=== PATIENT | female | born 1995 | race Caucasian/White ===

== ENCOUNTER 2024-09-23 07:31 | Outpatient (CLI) | payer BC, SELFPAY ==
--- NOTE | 2024-09-23 07:15 | CRLHL7_ITS ---
For Patients: As a result of the Cures Act, medical imaging exams and procedure reports are released immediately into your electronic medical record. You may view this report before your referring provider. If you have questions, please contact your health care provider. INDICATION: First trimester scan, establish dates. COMPARISON: None. TECHNIQUE: Real-time martin-scale imaging of the pelvis was performed. FINDINGS: Sonographic imaging demonstrates a single living intrauterine gestation. The embryo demonstrates a regular cardiac rate measuring 169 beats per minute. The embryo`s crown-rump length measurement of 2.9 cm corresponds to a gestational age of 9 weeks 5 days with a sonographic due date of 04/23/2025. There is a normal-appearing yolk sac. There are no gross abnormalities noted within the embryo at this early state of development. The gestational sac has a normal appearance. There is no evidence of a perigestational hemorrhage. The amount of fluid within the sac appears appropriate for gestational age. The cervix is closed. The myometrium appears normal. Corpus luteal cyst left ovary measures 1.8 x 1.4 x 2.1 cm. Simple right ovarian cyst is present measuring 2.1 x 2.0 x 1.8 cm. There are no suspicious fluid collections noted in the cul-de-sac. IMPRESSION: Single living intrauterine with sonographic gestational age 9 weeks 5 days and sonographic due date 04/23/2025. Dictated by Jackson Mosquera MD @ 09/23/2024 9:24:56 AM (Electronically Signed)
== END 2024-09-23 07:32 | disposition home or self-care (01) ==
PROVIDERS: Visit Provider Midwife
DX: Z34.91 Encounter for supervision of normal pregnancy, unspecified, first trimester (principal); Z3A.09 9 weeks gestation of pregnancy
CPT/HCPCS: 76817

== ENCOUNTER 2024-09-23 08:14 | Outpatient (CLI) | payer BC, SELFPAY ==
[2024-09-25 06:25] LABS: HPV Source Cervical; HPV, High Risk by TMA Not Detected
== END 2024-09-23 08:15 | disposition home or self-care (01) ==
PROVIDERS: Visit Provider Advanced Practice Midwife
DX: Z12.4 Encounter for screening for malignant neoplasm of cervix (principal); Z11.3 Encounter for screening for infections with a predominantly sexual mode of transmission; Z11.51 Encounter for screening for human papillomavirus (HPV)
CPT/HCPCS: 87491; 87591; 87624; 87625; 88141; 88142

== ENCOUNTER 2024-09-26 11:10 | Outpatient (CLI) | payer BC, SELFPAY | END 2024-09-26 11:11 | disposition home or self-care (01) | LOC: NFLDREF 09-27 03:30 | PROVIDERS: Visit Provider Advanced Practice Midwife | DX: Z34.81 Encounter for supervision of other normal pregnancy, first trimester (principal); Z67.10 Type A blood, Rh positive | CPT/HCPCS: 83020; 83021; 85660; 86592; 86703; 86704; 86706; 86762; 86787; 86803; 86850; 86900; 86901; 87086; 87340 ==

== ENCOUNTER 2024-11-24 08:17 | Outpatient (CLI) | payer BC, SELFPAY | END 2024-11-24 08:18 | disposition home or self-care (01) | LOC: US 08:17 | PROVIDERS: Visit Provider Advanced Practice Midwife | DX: Z34.92 Encounter for supervision of normal pregnancy, unspecified, second trimester (principal); O35.AXX0 Maternal care for other (suspected) fetal abnormality and damage, fetal facial anomalies, not applicable or unspecified; O35.BXX0 Maternal care for other (suspected) fetal abnormality and damage, fetal cardiac anomalies, not applicable or unspecified; Z3A.19 19 weeks gestation of pregnancy | CPT/HCPCS: 76805 ==

== ENCOUNTER 2024-12-22 12:12 | Outpatient (CLI) | payer BC, SELFPAY ==
--- NOTE | 2024-12-22 12:15 | CRLHL7_ITS ---
For Patients: As a result of the Century Cures Act, medical imaging exams and procedure reports are released immediately into your electronic medical record. You may view this report before your referring provider. If you have questions, please contact your health care provider. OB ULTRASOUND DEMETRIO by LMP/US: 04/19/2025. GA: 23 w, 1 d. INDICATION: Follow-up heart, nose, lips, and left hand. TECHNIQUE: Real time grayscale imaging of the fetus was performed. Transabdominal. CERVIX: Visualized. Measurement: TA. 4.1 cm. POSITIONING: Breech. AMNIOTIC FLUID: 3.3 cm. SDP (N: greater than 2 x 1 cm) PLACENTA: Technique: Transabdominal. PLACENTA POSITION: Posterior. DOPPLER: heart rate: 152 bpm. IMPRESSION: Normal four-chamber heart, RVOT, nose, lips, and left hand. Incomplete visualization of the three-vessel trachea view due to position. Jackson Mosquera M.D. Diagnostic Radiologist [email or web address] [place]LA[facility]/tayla bourne/Dictated by: Jackson Mosquera MD @ 12/23/2024 9:01:00 AM (Electronically Signed)
== END 2024-12-22 12:13 | disposition home or self-care (01) ==
LOC: US 12:12
PROVIDERS: Visit Provider Advanced Practice Midwife
DX: O35.AXX0 Maternal care for other (suspected) fetal abnormality and damage, fetal facial anomalies, not applicable or unspecified (principal); O35.BXX0 Maternal care for other (suspected) fetal abnormality and damage, fetal cardiac anomalies, not applicable or unspecified; O35.GXX0 Maternal care for other (suspected) fetal abnormality and damage, fetal upper extremities anomalies, not applicable or unspecified; Z3A.23 23 weeks gestation of pregnancy
CPT/HCPCS: 76816

== ENCOUNTER 2024-12-22 13:40 | Outpatient (CLI) | payer BC, SELFPAY | END 2024-12-22 13:41 | disposition home or self-care (01) | LOC: NFLDREF 13:42 | PROVIDERS: Visit Provider Advanced Practice Midwife | DX: E04.9 Nontoxic goiter, unspecified (principal) | CPT/HCPCS: 76816; 84443 ==

== ENCOUNTER 2025-01-09 12:52 | Outpatient (CLI) | payer BC, SELFPAY ==
--- NOTE | 2025-01-09 13:00 | CRLHL7_ITS ---
For Patients: As a result of the Cures Act, medical imaging exams and procedure reports are released immediately into your electronic medical record. You may view this report before your referring provider. If you have questions, please contact your health care provider. OB ULTRASOUND LIMITED, 01/09/2025 CLINICAL HISTORY: Missing 3VV of heart. COMPARISON: 11/24/2024, 12/22/2024. TECHNIQUE: Real time martin scale imaging of the fetus was performed transvaginal. FINDINGS: DEMETRIO by LMP: 04/19/2025. GA: 25 weeks 5 days. GESTATION: Single. LMP: 07/13/2024. CERVIX: Not visualized. POSITIONING: Vertex. AMNIOTIC FLUID: 4.1 cm/SDP. PLACENTA: Technique: TA. Placenta Position: Posterior. DOPPLERS: Heart Rate: 149 bpm. IMPRESSION: Normal three vessel trachea view, three vessel view, RVOT, LVOT and four chamber heart. Jackson Mosquera M.D. Diagnostic Radiologist [email or web address] Transcribed: 2:49 pm DW/Dictated by: Jackson Mosquera MD @ 01/09/2025 2:27:00 PM (Electronically Signed)
== END 2025-01-09 12:53 | disposition home or self-care (01) ==
LOC: US 12:53
PROVIDERS: Visit Provider Advanced Practice Midwife
DX: O35.BXX0 Maternal care for other (suspected) fetal abnormality and damage, fetal cardiac anomalies, not applicable or unspecified (principal); Z3A.35 35 weeks gestation of pregnancy
CPT/HCPCS: 76816

== ENCOUNTER 2025-01-19 12:35 | Outpatient (CLI) | payer BC, SELFPAY | END 2025-01-19 12:36 | disposition home or self-care (01) | LOC: NFLDREF 01-25 01:55 | PROVIDERS: Visit Provider Midwife | DX: Z34.83 Encounter for supervision of other normal pregnancy, third trimester (principal) | CPT/HCPCS: 86592 ==

== ENCOUNTER 2025-03-29 09:32 | Outpatient (CLI) | payer BC, SELFPAY | END 2025-03-29 09:33 | disposition home or self-care (01) | LOC: NFLDREF 03-31 17:15 | PROVIDERS: Visit Provider Advanced Practice Midwife | DX: Z34.83 Encounter for supervision of other normal pregnancy, third trimester (principal) | CPT/HCPCS: 87081; 87653 ==

== ENCOUNTER 2025-04-06 08:27 | Outpatient (CLI) | payer BC, SELFPAY ==
[2025-04-06 08:50] VITALS: PULSE 95; O2SAT 98
[2025-04-06 08:51] VITALS: BP 132/83; PULSE 93
[2025-04-06 08:52] VITALS: RESP 17; TEMP 36.5
[2025-04-06 08:55] VITALS: PULSE 94; O2SAT 97
[2025-04-06] MEDS: TERBUTALINE 1 MG/ML INJ 0.25 MG SUBCUT (09:54)
--- NOTE | 2025-04-06 09:57 | PM.OBCN1 ---
OB - CN: HPI Date of Consult Time Seen by Provider: 09:57 Date Seen: 04/06/25 Patient: [facility] Patient Consult date: 04/06/25 Requesting Physician: Lucius Blum CNM Primary Care Provider: Not a Local Provider Consult Narrative Reason for consult: other (External cephalic version) Narrative: The patient is a 30 year old G 2 P 1001 at 38 1/7 weeks gestation that was admitted to the Center on for ECV. Patient presented for her routine PNC appointment yesterday with YVES where malpresentation was diagnosed. After having a discussion with Emerita patient wanted to proceed with ECV. History of Present Dating criteria: based on LMP care: good care Ultrasounds: normal 1st trimester US and normal mid trimester US History History 2 Elective abortions Para 1 Spontaneous abortions Hx # Term Pregnancies Ectopic pregnancies Hx # Pregnancies Multiple births Number of Living Children 1 Past Pregnancies Del. Date GA/Weeks Outcome Route wt Inf Gender Labor Lgth Anesthesia Location Provider Compli 01/26/23 39 live - full term vaginal delivery 3.629 kg Male 2hr active, labored at home for a long time none [place] Delivery Date: 01/26/23 Last Updated by: Lia Miller CNM mild shoulder dystocia-Janae and suprapubic pressure, no time given but less than 1 min PFSH PFSH Medical History History of ovarian cyst ?Z87.42 - Personal history of other diseases of the female genital tract (ICD-10) No pertinent past medical history ?Z78.9 - Other specified health status (ICD-10) Surgical History H/O wisdom tooth extraction ?K08.409 - Partial loss of teeth, unspecified cause, unspecified class (ICD-10) Family History Paternal Grandfather Diabetes Social History Narrative: SOCIAL Education: bachelors 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 Seat Belt Use: Routinely Smoking: Denies past/present Alcohol/day: Denies while Caffeine: occasionally Drug Use: Denies past/present Chicken Pox: Yes as a child MRSA: Denies What is your current living situation?: I presently have a place to live In the past 12 months, utilities in danger of being shut off: no In past 12 months, lack of transportation kept you from medical appts, meetings, work, or getting things needed for daily living: no In the past 12 mos, have been you worried that your food would run out before you had money to buy more?: never true In the past 12 mos, the food you bought just didn't last and you didn't have money to buy more?: never true How often does anyone, including family, friends and others, physically hurt you: never How often does anyone, including family, friends and others, insult or talk down to you: never How often does anyone, including family, friends and others, threaten you with harm: never How often does anyone, including family, friends and others, scream or curse at you: never Meds Home Medications and Allergies Home Medications ?Medication ?Instructions ?Recorded ?Confirmed ?Type vit 168-iron 27 mg-folic 1 cap PO DAILY 12/22/24 04/06/25 History acid 800 mcg-omega3 235 mg capsule (One-A-Day -1) omega 3-dha 100 mg-epa 400 mg-fish 1 cap PO DAILY 03/16/25 04/06/25 History oil 1,000 mg capsule magnesium 200 mg tablet 200 mg PO DAILY 04/06/25 04/06/25 History Allergies Allergy/AdvReac Type Severity Reaction Status Date / Time No Known Drug Allergies Allergy Verified 04/06/25 08:56 OB - H&P: Exam Physical Exam: Vital signs: Temp Pulse Resp BP Pulse Ox 97.7 F 93 17 132/83 97 04/06/25 08:52 04/06/25 08:51 04/06/25 08:52 04/06/25 08:51 04/06/25 08:55 Narrative: Bedside US confirms jodi breech presentation. Head is midline upper abdomen and back is towards maternal left, extremities toward maternal right side. Posterior placenta and grossly normal amniotic fluid. SDP at least of 3cm. Buttock does not seem to be engaged in pelvis. Informed consent reviewed and signed by patient. Discussed how procedure is performed, possible risks such as PROM, placental abruption and needing emergency delivery today, concealed placental abruption and risk of stillbirth. Discussed recommendation for continued monitoring after procedure, discussed close monitoring of kick counts after procedure. Discussed possible scenarios in terms if we are successful or not. Discussed that if we are unsuccessful at this gestational age, my recommendation would be to proceed with delivery at 39 weeks and discussed the reasoning behind 39 weeks delivery to try to prevent malpresentation complications and labor such as umbilical cord prolapse etc... NST completed upon admission: 130bpm/positive accelerations/negative decelerations/moderate variability/no uterine contractions. We established IV line and one dose of Terbutaline 0.25mg SQ x1 was given. After 10 minutes, Patient was placed supine in bed. I had assistance from Lucius Blum CNM. First attempt we performed was a backward somersault and successful. Procedure ended. Patient will remain in unit at least 1 hour post procedure for long NST. She will follow up routinely in week in clinic. OB - CN: A/P Assessment and Plan (1) Breech position of fetus: Status: Acute (2) Successful external cephalic version: Status: Acute Plan Successful ECV, reassuring monitoring after procedure, patient tolerated well. Plans to follow up in clinic in 1 week for routine care sooner with any concerns as discussed prior to procedure.
--- NOTE | 2025-04-06 11:31 | PC.OBNST ---
NST Note NST Note Start: 04/06/25 08:44 Freq: ONCE Status: Active Protocol: Document 04/06/25 08:44 [facility] (Rec: 04/06/25 11:31 [facility] [id number]) NST Note 2 Para (# of births) 1 EDC 04/19/25 Gestational Age In 38 Weeks & 1 Days Weeks & Days Patient Presented Other with Complaint(s) of Other Complaints outpatient ECV Reactive Yes Appropriate for Yes Gestational Age RN Apollo RN Date 04/06/25 Reactive Yes Appropriate for Yes Gestational Age DOMENICO Tinsley RN Date 04/06/25 OB NST charge Yes Complete NST Note Yes via Write Note The provider's electronic signature indicates the NST is reactive/appropriate for gestational age. *Note to provider: If an addendum is required, open the patient's chart and click on the note under the Nurse/Allied Health tab.
== END 2025-04-06 11:15 | disposition home or self-care (01) ==
LOC: OB CLI 08:29 → OB 08:41
PROVIDERS: Visit Provider Obstetrics & Gynecology
DX: O32.1XX0 Maternal care for breech presentation, not applicable or unspecified (principal); Z3A.38 38 weeks gestation of pregnancy
CPT/HCPCS: 59025; 59412; 76815; G0463; J3105

== ENCOUNTER 2025-04-26 11:53 | Inpatient (IN) | payer BC, SELFPAY ==
[2025-04-26] VITALS (11 sets, daily range): BP systolic 125–165; BP diastolic 58–79; PULSE 83–109; RESP 18; TEMP 36.6–36.8; O2SAT 18–97; BMI 33.2
--- NOTE | 2025-04-26 13:05 | W.PM.LDBA ---
Subjective History of Present Illness Date Seen: 04/26/25 Narrative: Trang is a 30 yo at 41 0/7 weeks being admitted to Labor and Delivery for spontaneous onset of labor, post-term. She reports contractions started around 4 am and have been irregular since but slowly becoming more regular and increasing in intensity. Her last labor was a precip with only 2 hours of active labor and she came in not feeling many contractions. She was worried if she waited she may come too late. Her bag of water is still intact. She has had some bloody show but otherwise no bleeding. She reports active movement. She is supported in labor by her , Narinder. Her full history and physical was dictated by YVES Angeles on 04/26/2025. Please see this for details. Specific Issues/Plans :Narinder Son: Anthony. It is a boy! H&P 04/05/25 by Angel Miller CNM, exam by Finn Blum CNM # Possible hx shoulder dystocia. No time given but Janae and suprapubic used but per patient video, not verified that suprapubic was actually performed Time of head to time of body just states same time. Mild shoulder dystocia listed in notes with Janae maneuver and suprapubic pressure used to reduce per note, pt does not recall this. Total labor was very quick Notes reviewed with MD JERALD, Perinatology lead, who feels the risk is low and agrees with CNM team that this can be safely offered to the patient. Discussed risk of shoulder dystocia reoccurring and how it would be managed in tub with patient. # GBS positive. Declination form signed on admission to center # Hx precipitous delivery. 2hr active labor in delivery records. She stated she labored for a long time at home, prodromal labor a few days but active only 2 hours, pt report after AROM labor was quick # PHQ 13 at NOB. She feels it is situational/seasonal and declines intervention. Mood improving at 15 weeks, consider PHQ next visit if necessary; pt feels mood is stable at 19 weeks # 2nd US attempt still missing 3VT. Consider repeat US vs echo. 3rd attempt: normal heart views! # Mildly enlarged thyroid at 23 weeks, TSH 0.538 # Anemia, Hgb 10.9 at 35 wks. Started PO iron. # Gap in care from 27 to 35 weeks. # Breech at 38 weeks, RESOLVED Successful Version 04/06/2025 Vaccinations: Covid: Flu: Tdap: Ultrasound 11/24/2024: Single live intrauterine measuring 18 weeks 6 days. 2)The nose/lips, left hand, 4-chamber view of the heart, right ventricular outflow tract, and 3-vessel cord are suboptimally imaged due to persistent movement. Follow up ordered. Ultrasound 12/22/2024: SIUP, SDP 3.3, 4 chamber heart view, RVOT, left hand, and nose/lips visualized. Difficulty seeing 3VT due to position. OB - Problem Based A/P Additional Plan (1) Pain during labor: Status: Acute (2) Post term , 41 weeks: Status: Acute (3) History of precipitous delivery: Status: Acute (4) Hx of shoulder dystocia in prior , currently : Problem details: Unclear documentation, mild shoulder dystocia resolved with Janae and Suprapubic pressure Status: Acute (5) Group B Streptococcus carrier, antepartum: Status: Acute Plan ASSESSMENT:? 30 yo at 41 0/7 weeks gestation? complicated by:?possible hx of shoulder dystocia, GBS + declines treatment in labor, hx of precip, mildly enlarged thyroid at 23 weeks, anemia, gap in care from 27-35 weeks, breech at 38 weeks now resolved Labor type: Spontaneous, Early labor? Category 1 FHR pattern.?? Labor complicated by: none? GBS positive? ? PLAN:? 1. Routine intrapartum cares as ordered. Continue with expectant management. We discussed option of AROM if labor slows or stall. She may be open to this. 2. Monitoring per policy, intermittent? 3. Planning unmedicated . Desires water . Consent signed. Hep C negative. Candidate for analgesia of choice, if desired. Waterbirth room is currently occupied so we discussed options of laboring in small tub and exiting when we feel pushy..?? 4. Patient encouraged to reposition and ambulate to promote physiologic labor and .? 5. GBS positive but was uncertain about treating. Reviewed risk/benefit and discussed if she declines or is not adequate we would recommend 48 hours of monitoring after delivery. We discussed risk factors of when we would recommend treatment. She agrees with plan and has decided to decline antibiotic treatment in labor. Declination form signed. 6. Anticipate ? Delivery/Labor/Induction Plan Plan: expectant management OB Exam Physical Exam Vital signs: Pulse BP Pulse Ox 90 126/79 97 04/26/25 11:40 04/26/25 11:40 04/26/25 11:38 Narrative: Vitals Reviewed Constitutional:? Alert and oriented x3 HEENT:? Normocephalic, atraumatic Neck:? Supple Lungs:? Clear to auscultation bilaterally Heart:? Regular rate and rhythm, no murmur, rub or gallop Abdomen:? Soft, nontender, and gravid. Vertex by Castro's, confirmed with cervical exam. Extremities:? No edema or erythema Cervix: 4.5 cm/80%/-2 station/vertex NST: 135 bpm/moderate variability/15x15 accelerations/no decelerations/contractions every 4-5 minutes Detailed Labor and Delivery Exam Patient Gravid: yes
[2025-04-26] MEDS: IBUPROFEN 600 MG TABLET PO (18:00)
--- NOTE | 2025-04-26 18:03 | W.PM.OBVAGDE ---
OB Procedure Vag Delivery Mother Details Mother Details: The patient is a 30 year-old, 2, now para 2, admitted on 04/26/25 at 41 0/7 weeks gestation. : 2 Para: 2 Weeks Gestation: 41.0 Admission Date: 04/26/25 Additional Details Amniotic Membrane Status: SROM Amniotic Membrane Rupture Date: 04/26/25 Amniotic Membrane Rupture Time: 15:56 Amniotic Membrane Fluid Description: Clear Analgesia/Anesthesia Type: None Waterbirth: No Pitcoin: No (Declined AMTSL) Intrapartal Events: None Labor Onset: 13:00 Complete: 17:00 Pushin:26 Heart: heart tones during second stage were reassuring via intermittent monitoring. Delivery Details Delivery Date: 04/26/25 Delivery Time: 17:32 Route of delivery: Infant Gender: Male Viability: Alive; Heart Rate Present Position at Delivery: OA Delivery Details: Patient was admitted for spontaneous onset of labor and progressed normally. SROM of clear fluid at 1556. Patient labored in multiple positions and began pushing involuntarily with urge at 1543. She was assumed complete with active pushing at 1700. She became very panicked and stating she was very scared during the active pushing phase but was able to be redirected and guided to pushing. of a viable male at 1726 in right tilt on the bed. Vertex delivered OA. Nuchal cord identified with delivery of head and easily reduced. No shoulder. Body delivered easily and without incident. Infant passed to mothers abdomen with a vigorous cry. Cord was clamped and cut at > 5 minutes, after placenta had delivered. APGARS were 8 at one minute and 8 at five minutes respectively. Mouth was bulb suctioned. Intact placenta with a 3 vessel cord delivered spontaneously at 1732. Fundus firm. Intact perineum. QBL 100 cc. Mother and baby stable; mother plans to breastfeed. Infant weight pending. 1 Minute Interval Total Score: 8 5 Minute Interval Total Score: 8 Additional Details Shoulder Dystocia: No Placenta Delivery Time: 17:32 Placental Delivery Description: Spontaneous Procedure Done: Global Blood Loss: 100 Laceration: None Blood Loss Measurement Type: QBL Cord Vessel Description: 3 Vessels, Nuchal Cord, Loose and Reduced Event Summary Status: Mother and were stable after delivery. Trang reported she was anxious and felt out of body after delivery. Guidance and reassurance helped her calm down. She was encouraged to just rest and breathe to try to relax. Disposition: floor
[2025-04-27 01:00] VITALS: BP 107/67; PULSE 81; RESP 16; TEMP 36.7; O2SAT 977
[2025-04-27] MEDS: IBUPROFEN 600 MG TABLET PO ×4 (01:07→21:22)
[2025-04-27 04:51] VITALS: BP 125/83; PULSE 81; RESP 16; TEMP 36.6; O2SAT 98
[2025-04-27] MEDS: ACETAMINOPHEN 500 MG TABLET 1000 MG PO (05:12)
--- NOTE | 2025-04-27 08:50 | PM.OBPNVD1 ---
OB - PN:Subj Subjective Date Seen: 04/27/25 Narrative: Trang is a 30 y.o. who was admitted to [facility] & [facility] for labor.? She had an uncomplicated NVD.? ?? The patient feels well.? The pain is well controlled with current medications.? She has no new complaints.? She is breast feeding and reports things are going well.? the patient has done well.? Vitals have been stable.? She has remained afebrile.? Has a good appetite, is tolerating a general diet.? She is voiding without difficulty.? She is passing gas and has not had a bowel movement.? She is ambulating and denies any dizziness.? Has Small amount of rubra lochia.? OB - PN: Obj Exam Physical Exam: Vital signs: Temp Pulse Resp BP Pulse Ox O2 Del Method 97.8 F 81 16 125/83 98 Room Air 04/27/25 04:51 04/27/25 04:51 04/27/25 04:51 04/27/25 04:51 04/27/25 04:51 04/27/25 04:51 Narrative: GENERAL APPEARANCE:? normal affect, alert, no distress? MOOD:? appropriate? HEENT: normocephalic, neck supple, full ROM? CHEST:? Symmetrical chest wall movement.? Normal respiratory effort.? Clear to auscultation ? HEART:? regular rate and rhythm? ABDOMEN:? soft, non-tender. Uterine fundus is firm, at Umbilicus, Midline and is appropriate for the stage of recovery.? Bowel sounds present.? PERINEUM:? mild edema of the perineum, intact EXTREMITIES:? normal and trace edema? OB - PN: A/P Delivery Assessment and Plan (1) care and examination of lactating mother: Status: Acute (2) Pain during labor: Status: Acute (3) Post term , 41 weeks: Status: Acute (4) History of precipitous delivery: Status: Acute (5) Hx of shoulder dystocia in prior , currently : Problem details: Unclear documentation, mild shoulder dystocia resolved with Janae and Suprapubic pressure Status: Acute (6) Group B Streptococcus carrier, antepartum: Status: Acute Plan day: 1 Plan: routine care Comments: G 2 P 2 status post uncomplicated NVD??? 1.? Continue route PP cares? 2.? .? May see if desired? 3.? Anticipate discharge home tomorrow?
[2025-04-27 08:54] VITALS: BP 111/53; PULSE 72; RESP 18; TEMP 37.1; O2SAT 97
[2025-04-27 12:35] VITALS: BP 110/68; PULSE 82; RESP 18; TEMP 36.7; O2SAT 96
[2025-04-27 19:11] VITALS: BP 110/71; PULSE 80; RESP 17; TEMP 36.7; O2SAT 98
[2025-04-28] MEDS: IBUPROFEN 600 MG TABLET PO (03:34)
[2025-04-28 03:35] VITALS: BP 110/67; PULSE 76; RESP 16; TEMP 36.7; O2SAT 97
[2025-04-28 07:49] VITALS: BP 111/71; PULSE 73; RESP 16; TEMP 36.3; O2SAT 97
--- NOTE | 2025-04-28 08:15 | P.DS_ITS ---
DS: Providers Provider Date Seen: 04/28/25 Date of admission: 04/26/25 11:53 Primary care physician: Not a Local Provider Admitting Clinician: Slime Mukherjee CNM Attending Physician on discharge: Slime Mukherjee CNM Date of Discharge: 04/28/25 DS: Diagnosis Discharge Diagnosis (1) care and examination of lactating mother: Status: Acute (2) Group B Streptococcus carrier, antepartum: Status: Acute (3) Vaginal delivery: Status: Acute Exam Narrative: Exam Narrative: GENERAL APPEARANCE:? normal affect, alert, no distress? MOOD:? appropriate? CHEST:? clear to auscultation and percussion? HEART:? regular rate and rhythm? BREASTS: soft, nontender, no erythema, nipples intact? ABDOMEN:? soft, non-tender the uterine fundus is U/2 and is appropriate for the stage of recovery.? PERINEUM:? mild edema of the perineum, there is a intact perineum that is healing well.? EXTREMITIES:? normal and no edema? Const: Vital Signs, click to edit/add: Vital Signs - 24 hr 04/27/25 08:54 04/27/25 12:35 04/27/25 19:11 Temperature 98.7 F 98.0 F 98.1 F Pulse Rate [Pulse Oximeter] 72 82 80 Respiratory Rate 18 18 17 Blood Pressure [Ri ght Arm] 111/53 L 110/68 110/71 Pulse Oximetry 97 96 98 Oxygen Delivery Me thod Room Air Room Air Room Air 04/28/25 03:35 04/28/25 07:49 Temperature 98.0 F 97.4 F L Pulse Rate [Pulse Oximeter] 76 73 Respiratory Rate 16 16 Blood Pressure [Ri ght Arm] 110/67 111/71 Pulse Oximetry 97 97 Oxygen Delivery Me thod Room Air Room Air Documenting provider has reviewed patient's vital signs: yes OB - DS: Summary Hospital Course Hospital Course: Trang is a 30 y.o. G 2 P 2 who was admitted to [facility] for spontaneous labor. ?She had a NVD that was uncomplicated. The patient feels well. ?The pain is well controlled with current medications. ?She has no new complaints. ?She is breast feeding and reports things are going well. the patient has done well.? Vitals have been stable.? She has remained afebrile.? Has a good appetite, is tolerating a general diet. ?She is voiding without difficulty.? She is passing gas and has not had a bowel movement.? She is ambulating and denies any dizziness.? Has small amount of rubra lochia. She is planning natural family planning for prevention. Problems: none Peripartum Data delivery method: Vaginal Laceration description: None Episiotomy description: None complications: none Gender: Male Discharge Plan: Home Status at Discharge Functional status at discharge: independent ambulation Overall status at discharge: patient is progressing back to baseline Time Spent with Patient Time attestation: Total time spent providing and/or coordinating discharge services: Discharge Plan Discharge Disposition: Home, Self-Care Date of Admission: 04/26/25 11:53 Attending Provider on Discharge: Lia Miller Primary Care Provider: Provider,Not a Local Condition: Stable Anticipated Discharge Date/Time: 04/28/25 10:00 Discharge Medications: New docusate sodium 100 mg Capsule 100 mg PO DAILY Qty: 120 0RF Rx Instructions: Take 1-2 tablets daily as needed for constipation. ibuprofen 600 mg Tablet 600 mg PO Q6H PRNQty: 60 0RF Continued One-A-Day -1 27 mg iron- 800 mcg-235 mg capsule 1 cap PO DAILY omega 7-edw-ooi-fish oil 100-400-1,000 mg capsule 1 cap PO DAILY magnesium 200 mg tablet 200 mg PO DAILY Discharge Orders: Discharge Order (Routine); Ordered 04/28/25 Ordered By: Lia Miller Patient Education: OB Vaginal/Breast Feeding Additional Instructions: Discharge instructions were reviewed with the patient including signs and symptoms of infection and home going medications Nothing vaginally for 6 weeks: no tampons or intercourse Do not drive while taking narcotic pain medication(s) Off Work or School for 8 weeks Symptoms to report to doctor: * Bleeding that saturates more than one pad per hour * Passing clots larger than the size of a golf ball * Pain not relieved by prescribed medication * Fever above 100.4 degrees Fahrenheit * A foul vaginal odor * Difficulty in emotions, mood, and functions * Thoughts of hurting yourself and/or * Painful, reddened area in your breast * Any drainage, redness, or tenderness in your IV/epidural site * Severe headache that doesn't improve after taking medications * Changes in vision, including temporary loss of vision, blurred vision, and/or light sensitivity * Upper abdominal pain (usually under ribs on the right side) * Decrease in urination or painful, frequent urinating * Chest pain * Shortness of breath * Tenderness or pain with redness and/swelling in the calf(s) of your leg 2-week visit: discuss infant feeding concerns, review control options and screen for anxiety/depression. 6-week visit for an annual exam. consultation services are available to all mothers and babies for the first year after delivery.? To make an appointment, please call [phone]. Activity Level: Activity as Tolerated Discharge Diet: Regular Follow Up Appointments: [facility] [Provider Group] Provider,Not a Local [Primary Care Provider, Family Practice] Forms: [facility] Info Instructions
== END 2025-04-28 10:43 | disposition home or self-care (01) | DRG 560 ==
LOC: OB OUT 11:53 → OB 11:53
PROVIDERS: Admitting Provider Advanced Practice Midwife; Referring Provider Advanced Practice Midwife; Visit Provider Advanced Practice Midwife
DX: O48.0 Post-term pregnancy (principal); O99.824 Streptococcus B carrier state complicating childbirth; O99.02 Anemia complicating childbirth; D64.9 Anemia, unspecified; Z37.0 Single live birth; Z3A.41 41 weeks gestation of pregnancy
CPT/HCPCS: 86592; A9270